=== PATIENT | male | born 1975 | race Two or more races ===

== ENCOUNTER 2018-11-22 19:17 | Emergency (ER) | payer OTHER ==
[~2018-11-22] VITALS: Ht 175.3 cm; Wt 133.8 kg
[~2018-11-22 19:17] MED LIST: HYZAAR 100-251 UDTAB PO; [UNRECOGNIZED DRUG - OTHER]
[2018-11-22] MEDS ORDERED: VERAPAMIL ER240 MG (20:07)
[2018-11-22] MEDS ORDERED: TRANDOLAPRIL2 MG (20:08)
[2018-11-23] MEDS ORDERED: MUCINEX DM ER1 EAC1 PO (02:50)
[2018-11-23] MEDS ORDERED: ZITHROMAX500 MG PO (02:50)
[2018-11-23] MEDS ORDERED: IBUPROFEN600 MG PO (02:50)
== END 2018-11-23 03:01 | disposition home or self-care (01) ==
LOC: ER 19:17
DX: J11.1 Influenza due to unidentified influenza virus with other respiratory manifestations (principal); J31.2 Chronic pharyngitis

== ENCOUNTER 2019-05-09 20:31 | Emergency (ER) | payer OTHER ==
[~2019-05-09] VITALS: Ht 175.3 cm; Wt 145.1 kg
[~2019-05-09 20:31] MED LIST changes: +IBUPROFEN600 MG PO; +MUCINEX DM ER1 EAC1 PO; +TRANDOLAPRIL2 MG; +VERAPAMIL ER240 MG; +ZITHROMAX500 MG PO
== END 2019-05-09 22:53 | disposition home or self-care (01) ==
LOC: ER 20:31
DX: F06.4 Anxiety disorder due to known physiological condition (principal); I10 Essential (primary) hypertension